=== PATIENT | male | born 1935 | race Caucasian/White ===

== ENCOUNTER → 2019-04-12 | Day surgery (SDC) | payer MEDICARE, OTHER ==
[~2019-04-12] MED LIST: ALEVE220 MG PO; AMIODARONE HCL200 MG PO; ASPIR 8181 MG PO; ATORVASTATIN CA10 MG PO; DIGOXIN125 MCG PO; EPHEDRINE SULFATE INJ 50 MG/10 ML SYR ONE; FENTANYL CITRATE/PF 100MCG/2 ML INJ ONE; GABAPENTIN300 MG PO; GLUCAGON FOR INJ 1 MG VIAL ONE; HYOSCYAMINE SULFATE 0.5 MG/ML INJ ONE; LIDOCAINE HCL 2% LOCAL INJ 5 ML SDV VIAL INJ ONE; LISINOPRIL-HCT1 EAC2 PO; METOPROLOL SUC100 MG PO; MULTI-VITAMIN1 EACH PO; PROPOFOL IV EMULSION 10 MG/ML 50 ML VIAL ONE; TAMSULOSIN HCL0.4 MG PO; VITAMIN C500 MG PO; ZETIA10 MG PO
--- OUTSIDE RECORDS SUMMARY | 2019-04-12 05:57 | XMS REPORT ---
Author Author [facility] Address Unknown Phone Unavailable Care Team Providers Care Hoop Driving Machine Operator Name Role Phone CRUTIS ELIZALDE Unavailable Unavailable Problems This patient has no known problems. Allergies, Adverse Reactions, Alerts This patient has no known allergies or adverse reactions. Medications This patient has no known medications. Results Test Description Test Time Test Comments Text Results Atomic Results Result Comments RAD, CHEST, 1 VIEW, NON DEPT 2017-12-01 14:40:00 Reason for exam:->chest painShould this be performed at the bedside?->Yes FINAL REPORT Chest one view INDICATION: Chest pain COMPARISON: 01/15/2011 IMPRESSION: The cardiac silhouette is enlarged. There is pulmonary vascular congestion with interstitial edema. A small left pleural effusion is present. Left basilar opacity could reflect atelectasis. Pneumonitis should be excluded clinically. Median sternotomy changes and an ICD are noted. Signed: Robert Betancourt MDReport Verified Date/Time: 12/01/2017 14:40:46 Reading Location: [address] Consult Reading Room TINE KINASE (CK), TOTAL AND MB 2017-12-01 13:58:00 CREATINE KINASE TOTAL (BEAKER) (test ltot=910) 72 U/L 29-200 CREATINE KINASE-MB (BEAKER) (test ytnu=333) 1.4 ng/mL 0.0-6.6 CREATINE KINASE-MB INDEX (BEAKER) (test jbkb=244) 1.9 % CK-MB Reference Range:<6.7 Normal6.7-10.0 Borderline>10.0 Abnormal TROPONIN [id number] 13:58:00* Test Item Value Reference Range Comments TROPONIN I (BEAKER) (test tlnb=116) < ng/mL 0.00-0.03 Troponin I (TnI) levels must be interpreted in the context of the presenting sym ptoms and the clinical findings. Elevated TnI levels indicate myocardial damage, but are not specific for ischemic heart disease. Elevated TnI levels are seen in patients with other cardiac conditions (including myocarditis and congestive h eart failure), and slight TnI elevations occur in patients with other conditions , including sepsis, renal failure, acidosis, acute neurological disease, and per sistent tachyarrhythmia.B-TYPE NATRIURETIC FACTOR (BNP)2017-12-01 13:57:00* Test Item Value Reference Range Comments B-TYPE NATRIURETIC PEPTIDE (BEAKER) (test orvd=059) 170 pg/mL 0-100 BASIC METABOLIC [id number] 13:51:00* Test Item Value Reference Range Comments SODIUM (BEAKER) (test vcjz=664) 142 meq/L 136-145 POTASSIUM (BEAKER) (test zsaq=722) 4.3 meq/L 3.5-5.1 CHLORIDE (BEAKER) (test iyya=789) 104 meq/L 98-107 CO2 (BEAKER) (test fkxs=002) 29 meq/L 22-29 BLOOD UREA NITROGEN (BEAKER) (test abrl=973) 20 mg/dL 7-21 CREATININE (BEAKER) (test ifme=530) 1.15 mg/dL 0.57-1.25 GLUCOSE RANDOM (BEAKER) (test chdp=611) 109 mg/dL 70-105 CALCIUM (BEAKER) (test kufh=363) 10.0 mg/dL 8.4-10.2 EGFR (BEAKER) (test jzmp=7200) 61 mL/min/1.73 sq m ESTIMATED GFR IS NOT ACCURATE CREATININE CLEARANCE IN PREDICTING GLOMERULAR FILTRATION RATE. ESTIMATED GFR IS NOT APPLICABLE FOR DIALYSIS PATIENTS. CBC W/PLT COUNT & AUTO [id number] 13:28:00* Test Item Value Reference Range Comments WHITE BLOOD CELL COUNT (BEAKER) (test nlpo=419) 7.7 K/ L 3.5-10.5 RED BLOOD CELL COUNT (BEAKER) (test erzo=334) 4.77 M/ L 4.63-6.08 HEMOGLOBIN (BEAKER) (test vepv=128) 15.3 GM/DL 13.7-17.5 HEMATOCRIT (BEAKER) (test mfkc=085) 47.1 % 40.1-51.0 MEAN CORPUSCULAR VOLUME (BEAKER) (test baso=492) 98.7 fL 79.0-92.2 MEAN CORPUSCULAR HEMOGLOBIN (BEAKER) (test cjra=082) 32.1 pg 25.7-32.2 MEAN CORPUSCULAR HEMOGLOBIN CONC (BEAKER) (test hdtv=633) 32.5 GM/DL 32.3-36.5 RED CELL DISTRIBUTION WIDTH (BEAKER) (test ifdl=120) 12.7 % 11.6-14.4 PLATELET COUNT (BEAKER) (test mljq=712) 201 K/CU MM 150-450 MEAN PLATELET VOLUME (BEAKER) (test xopm=455) 10.2 fL 9.4-12.4 NUCLEATED RED BLOOD CELLS (BEAKER) (test fmrw=248) 0 /100 WBC 0-0 NEUTROPHILS RELATIVE PERCENT (BEAKER) (test oxaz=039) 53 % LYMPHOCYTES RELATIVE PERCENT (BEAKER) (test mhrc=114) 37 % MONOCYTES RELATIVE PERCENT (BEAKER) (test pbvz=934) 8 % EOSINOPHILS RELATIVE PERCENT (BEAKER) (test qmyq=274) 1 % BASOPHILS RELATIVE PERCENT (BEAKER) (test womv=829) 0 % NEUTROPHILS ABSOLUTE COUNT (BEAKER) (test ppkc=944) 4.13 K/ L 1.78-5.38 LYMPHOCYTES ABSOLUTE COUNT (BEAKER) (test cqlf=529) 2.86 K/ L 1.32-3.57 MONOCYTES ABSOLUTE COUNT (BEAKER) (test fqac=640) 0.61 K/ L 0.30-0.82 EOSINOPHILS ABSOLUTE COUNT (BEAKER) (test opvu=584) 0.07 K/ L 0.04-0.54 BASOPHILS ABSOLUTE COUNT (BEAKER) (test mnwf=863) 0.03 K/ L 0.01-0.08 IMMATURE GRANULOCYTES-RELATIVE PERCENT (BEAKER) (test yikh=7827) 0 % 0-1
--- OUTSIDE RECORDS SUMMARY | 2019-04-12 05:57 | XMS REPORT | Clinical Summary ---
Author Author [facility] Address Unknown Phone Unavailable Care Team Providers Care Endless Track Vehicle Supervisor Name Role Phone Divya Polanco PCP Allergies No Known Allergies Medications End Date Status Medication Sig Dispensed Refills Start Date Active atorvastatin (LIPITOR) 10 Take 10 mg by 0 MG tablet mouth daily. Active lisinopril-hydrochlorothi Take 1 tablet 0 azide by mouth (PRINZIDE,ZESTORETIC) every other 10-12.5 mg per tablet day . Active tamsulosin (FLOMAX) 0.4 Take 0.4 mg 0 mg Cp24 24 hr capsule by mouth daily. Active metoprolol (TOPROL-XL) Take 100 mg 0 100 MG 24 hr tablet by mouth every other day . Active amiodarone (PACERONE) 200 Take 200 mg 0 MG tablet by mouth daily. Active aspirin 81 mg Tab Take by mouth 0 daily. Active ezetimibe (ZETIA) 10 mg Take 10 mg by 0 tablet mouth daily. Active gabapentin (NEURONTIN) Take 300 mg 0 300 MG capsule by mouth daily. Active Problems Not on file Social History Date Tobacco Use Types Packs/Day Years Used Former Smoker Smokeless Tobacco: Never Used Comments: Quit 15 yrs ago Alcohol Use Drinks/Week oz/Week Comments No Sex Assigned at Date Recorded Not on file Industry Job Start Date Occupation Not on file Not on file Not on file Travel End Travel History Travel Start No recent travel history available. Last Filed Vital Signs Not on file Plan of Treatment Not on file Procedures Comments Procedure Name Priority Date/Time Associated Diagnosis ARRYTHMIA IMPLANT REPORT 09/03/2018 - SCAN 8:01 AM CDT after 04/11/2018 Results * ARRYTHMIA IMPLANT REPORT - SCAN (09/03/2018 8:01 AM CDT) Narrative Performed At after 04/11/2018 Insurance Payer Benefit Subscriber ID Type Phone Address Plan / Group MEDICARE MEDICARE A xxxxxxxxxx Medicare B MCR SUPPLEMENT/INDIVIDUAL [employer] xxxxxxxxx [employer] [phone] [id number] (Work) Advance Directives For more information, please contact: [facility] [address] [place] [address] Date Inactivated Comments Code Status Date Activated 06/22/2014 8:42 PM Full Code 06/22/2014 7:48 AM This code status was determined by: Patient
[2019-04-12 09:45] VITALS: BP 114/63
--- NOTE | 2019-04-12 16:40 | Operative Report ---
DATE OF PROCEDURE: 04/12/2019 SURGEON: Michael Washington MD PROCEDURE: Esophagogastroduodenoscopy with biopsies and colonoscopy with polypectomy. INDICATIONS FOR EGD: History of melena. INDICATIONS FOR COLONOSCOPY: Surveillance colonoscopy, personal history of colon polyps, history of bright red blood per rectum. MEDICATION: The patient was done under MAC, please see anesthesiologist's note. PROCEDURE IN DETAIL: With the patient left lateral decubitus position, a flexible fiberoptic Olympus gastroscope was inserted into the esophagus with ease under direct visualization. Mucosa overlying the distal esophagus revealed some patchy erythema. The scope was then advanced with ease into the stomach and mucosa overlying the antrum and the body revealed some diffuse erythema and moderate edema and biopsies were obtained and sent to stain for H pylori. The pylorus was of normal contour and shape, it was intubated with ease and the scope was advanced all the way to the second portion of the duodenum. The scope was then withdrawn slowly and mucosa overlying the proximal second portion and the duodenal bulb appeared to be within normal limits. The scope was then withdrawn back into the stomach and retroflexed and mucosa overlying the fundus and cardia appeared to be within normal limits. The scope was then straightened out. The stomach was decompressed. The scope was subsequently withdrawn. The patient tolerated procedure well. IMPRESSION: 1. Distal esophagitis, mild. 2. Gastritis, biopsied, biopsies sent to stain for H pylori. PLAN: Follow up histology. Initiate Protonix 40 mg one p.o. q.a.m. a.c. PROCEDURE IN DETAIL: The patient was then turned around. After adequate lubrication of the anal canal, a flexible fiberoptic Olympus colonoscope was inserted into the rectum with ease and advanced all the way to the cecum. Four minute polyps were removed per cold biopsy forceps. In the cecum, diverticular disease was noted to be throughout the colon. One polyp was removed per cold biopsy forceps, one polyp was snared from the ascending colon, two polyps were snared from the transverse colon, one polyp was snared from the descending colon. One polyp was snared and three polyps were removed per cold biopsy forceps from the sigmoid colon. The scope was then retroflexed into the distal rectum and moderate-sized internal hemorrhoids were noted, none of which was actively bleeding. The scope was then straightened out, it was subsequently withdrawn. The patient tolerated procedure well. IMPRESSION: 1. Pandiverticulosis. 2. Cecal polyps x4, removed per cold biopsy forceps. 3. Ascending colon polyps x2, one snared and one removed per cold biopsy forceps. 4. Transverse colon polyps x2, snared. 5. Descending colon polyp x1, snared. 6. Sigmoid colon polyps x4, one snared and three removed per cold biopsy forceps. 7. Internal hemorrhoids, none actively bleeding. PLAN: Follow up histology. Initiate high-fiber, low-fat diet. Initiate high-fiber supplement. Timing of followup colonoscopy pending pathology report. Michael Washington MD [facility] [place][id number] cc: Kwabena Ruiz MD
== END | disposition home or self-care (01) ==
LOC: OR 05:46
PROVIDERS: ATTEND Internal Medicine Gastroenterology
DX: K29.70 Gastritis, unspecified, without bleeding (principal); D12.0 Benign neoplasm of cecum; D12.3 Benign neoplasm of transverse colon; D12.4 Benign neoplasm of descending colon; D12.5 Benign neoplasm of sigmoid colon; K20.9 Esophagitis, unspecified; K21.9 Gastro-esophageal reflux disease without esophagitis; K57.30 Diverticulosis of large intestine without perforation or abscess without bleeding; K64.8 Other hemorrhoids; I10 Essential (primary) hypertension; Z01.810 Encounter for preprocedural cardiovascular examination; Z79.82 Long term (current) use of aspirin; Z68.29 Body mass index [BMI] 29.0-29.9, adult; Z95.810 Presence of automatic (implantable) cardiac defibrillator
CPT/HCPCS: 43239; 45380; 45385; 88305; 88312; 93005; J1610; J1980; J2001; J2704; 45378; 45384